=== PATIENT | female | born 1995 | race Caucasian/White ===

== ENCOUNTER 2018-03-03 21:33 | Emergency (ER) | payer OTHER ==
[2016-05-29 14:48] VITALS: BMI 23.3
--- NOTE | 2018-03-03 21:42 | OBHP ---
Datetime: 03/03/2018 21:38 IP Adm Impression: Term, intrauterine Admit Comment, IP Provider: @ 39+ wks c/o ctx pian since 7am, increasing intesntiy adn fruqe ncy since 8pm, every 5 min, 05/25, does not desire any pain meidcain. 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 PMH: Dneise PSH: Denes FHX: dnies SHX: negaive etoh/tobacc/drugs meds PNV A/P @ 39+ wks in erly labor -pt given optin of admission / pain emdciaon, vs ambuaitn -cont davion oadn efm Pelvic Type - PN: Adequate Extremities - PN: Normal Abdomen - PN: Normal Back - PN: Normal Breast - PN: Not Done Lungs - PN: Normal Heart - PN: Normal Thyroid - PN: Not Done Neurologic - PN: Normal HEENT - PN: Normal General - PN: Normal Presentation-Admit: Vertex FHR - Baseline A Provider: 145 Membranes, Provider: Intact Gestation - Est Wks by US: 39+ Vital Signs Provider: Reviewed IP Chief Complaint: Uterine contractions NICHD Variability Prov Fetus A: Moderate 6-25bpm FHR Category Provider Fetus A: Category I NICHD Decel Fetus A IP Provider: None Dilatation, Provider: 4 Effacement, Provider: 50 Station, Provider: -2 Genitourinary Exam: Normal DTRs - PN: Normal
[2018-03-04 03:03] VITALS: BP 107/63; PULSE 88; RESP 18; TEMP 98.8
== END 2018-03-03 22:30 | disposition home or self-care (01) ==
LOC: C.EROB 21:33
DX: O47.1 False labor at or after 37 completed weeks of gestation (principal); Z3A.39 39 weeks gestation of pregnancy

== ENCOUNTER 2018-03-04 03:07 | Inpatient (IN) | payer OTHER ==
[2018-03-04 03:54] VITALS: BMI 24.1
[2018-03-04] MEDS ORDERED: Penicillin G 5 Million Unit Vial IVPB ONE (03:54)
[2018-03-04] MEDS ORDERED: Lactated Ringer's 1,000 ML IV SCH (04:00)
[2018-03-04 04:27] LABS: BASO # 0.1 K/uL (0.0-0.2); BASO % 0.5 % (0.0-2.0); EOS % 0.2 % (0.0-4.0); HEMOGLOBIN 13.3 g/dL (11.0-16.0); LYMPH # 0.8 K/uL (1.0-4.3); LYMPH % 4.8 % (20.0-40.0); MEAN CELL VOLUME 91.5 fL (81.0-99.0); MEAN CORPUSCULAR HEMOGLOBIN 31.4 pg (27.0-31.0); MEAN CORPUSCULAR HGB CONC 34.3 g/dL (33.0-37.0); MEAN PLATELET VOLUME 8.4 fL (7.2-11.7); MONO # 0.6 K/uL (0.0-0.8); NEUT # 14.3 K/uL (1.8-7.0); NEUT % 90.5 % (50.0-75.0); NRBC % 0.1 % (0.0-2.0); PLATELET COUNT 205 K/uL (130-400); RBC 4.24 Mil/uL (3.80-5.20); RED CELL DISTRIBUTION WIDTH 13.5 % (11.5-14.5); WHITE BLOOD COUNT 15.8 K/uL (4.8-10.8)
[2018-03-04 04:34] LABS: ALB/GLOB RATIO 0.9 (1.0-2.1); ALBUMIN 3.6 g/dL (3.5-5.0); ALT/SGPT 13 U/L (9-52); AST/SGOT 25 U/L (14-36); BLOOD UREA NITROGEN 9 mg/dL (7-17); CALCIUM 8.9 mg/dl (8.6-10.4); GFR AFRICAN-AMERICAN > 60; GFR NON-AFRICAN AMERICAN > 60
[2018-03-04 04:49] LABS: LYMPHOCYTE 5 % (20-40); MONOCYTE 4 % (0-10); NEUTROPHIL 91 % (50-75); PLATELET ESTIMATE NORMAL (NORMAL); TOTAL CELLS COUNTED 100
[2018-03-04 05:05] LABS: HEPATITIS B SURFACE AG Negative (NEGATIVE)
--- NOTE | 2018-03-04 08:45 | OBHP ---
Datetime: 03/04/2018 08:30 IP Adm Impression: Term, intrauterine IP Admit Plan: Admit to unit Admit Comment, IP Provider: @ 39+ wks c/o ctx pian since 7am, increasing intesntiy adn fruqe ncy since 8pm, every 5 min, 05/25, does not desire any pain meidcain. 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
--- NOTE | 2018-03-04 08:46 | OBADHP ---
Datetime: 03/04/2018 08:30 Admit Comment, IP Provider: @ 39+ wks c/o ctx pian since 7am, increasing intesntiy adn fruqe ncy since 8pm, every 5 min, 05/25, does not desire any pain meidcain. pt preorts hse had some spotting earlier and unsure if leaking dnies any gross spill +FM Ante [facility] clinic with Dr Duckworth last appoitnemtn 2 weeks ago, did not feel comfortable going to [place] OB: x 1 FT 5lb 1 2unces uncompicaed 1.5 years ago VP CLINICAL: dneis PMH: Dneise PSH: Denes FHX: dnies SHX: negaive etoh/tobacc/drugs meds PNV A/P @ 39+ wks in elaboradmit, -admit -npo, ivf -pain managmnet prn -cont davion oadn efm Presentation-Admit: Vertex FHR - Baseline A Provider: 150 Amniotic Fluid Color, Provider: Clear Membranes, Provider: Ruptured Contraction Comments Provider: q 5m Gestation - Est Wks by US: 39.0 Vital Signs Provider: Reviewed; Within Normal Limits IP Chief Complaint: Uterine contractions NICHD Decel Fetus A IP Provider: None Dilatation, Provider: 8 Effacement, Provider: 90 Station, Provider: -1 EGA AdmitDate IP: 39.0 IP Adm Impression: Term, intrauterine IP Admit Plan: Admit to unit Datetime: 03/03/2018 21:38 Pelvic Type - PN: Adequate Extremities - PN: Normal Abdomen - PN: Normal Back - PN: Normal Breast - PN: Not Done Lungs - PN: Normal Heart - PN: Normal Thyroid - PN: Not Done Neurologic - PN: Normal HEENT - PN: Normal General - PN: Normal NICHD Variability Prov Fetus A: Moderate 6-25bpm FHR Category Provider Fetus A: Category I Genitourinary Exam: Normal DTRs - PN: Normal
--- NOTE | 2018-03-04 08:47 | OBPN ---
Datetime: 03/04/2018 08:30 IP Progress Impression: Normal progression of labor IP Procedures: Artificial ROM IP Progress Plan: Continue present management Membranes, Provider: Ruptured Amniotic Fluid Color, Provider: Clear Contraction Comments Provider: q 5m FHR - Baseline A Provider: 150 Gestation - Est Wks by US: 39.0 Presentation-Admit: Vertex IP Progress Note Comment: pt demar adn examiend c/o prssure vsss ve: 8cm/90/-1 AROM clear A/P @ 39 wk in active labor con tcurret magment Vital Signs Provider: Reviewed; Within Normal Limits Dilatation, Provider: 8 Effacement, Provider: 90 Station, Provider: -1 NICHD Decel Fetus A IP Provider: None Datetime: 03/03/2018 21:38 FHR Category Provider Fetus A: Category I NICHD Variability Prov Fetus A: Moderate 6-25bpm
--- NOTE | 2018-03-04 08:51 | OBDS ---
DELIVERY PERSONNEL Delivery Doctor: Fabiola Sapp MD MATERNAL INFORMATION Delivery Anesthesia: None Medications in Delivery: methergine 0.2 mg.ml Estimated Blood Loss (ml): 200 Placenta Cultured: No Maternal Complications: None RN Comments: liveborn baby boy 9/9 Provider Comments: pt was fully dilated and pushing. Atruamtic, spontaneous deliveyr of head, no nuc elizabeth cord noted. atrumatic, spontaneous delivery of anterior followed b posterior soulder followed by delivery of eloy body. Both oral and nasal passages of eloy baby were bulb suctioned. umbilical cord cl amped and cut. Funud firm. intac tperineum, no laceration. loewr uterine segment boggy, bimanual mass age, IM methergine x 1 given. good hemostais,s no complicatins. Nena emale infnat agars 9,9 ebls 200 ml LABOR SUMMARY EDC: 03/11/2018 00:00 No. Babies in Womb: 1 Attempted: No Labor Anesthesia: None LABOR INFORMATION Reason for Induction: Not Applicable Onset of Labor: 03/03/2018 19:00 Oxytocin: N/A Group B Beta Strep: Done, Result Unknown Antibiotics # of Doses: 1 Antibiotics Time of Last Dose: 0405 Steroids Given: None Reason Steroids Not Administered: Not Applicable MEMBRANES Membranes Rupture Method: Artificial Rupture of Membranes: 03/04/2018 08:12 Length of Rupture (hrs): 0.35 Amniotic Fluid Color: Clear Amniotic Fluid Amount: Moderate Amniotic Fluid Odor: None VAGINAL DELIVERY Episiotomy: None Laceration Extension: N/A Laceration Type: None Laceration Repair: No Initial Vag Sponge Count: 10 Final Vag Sponge Count: 10 Initial Vag Sharps Count: 10 Final Vag Sharps Count: 10 Sponge Count Correct: N/A Sharps Count Correct: N/A Count Comment: all sponge counts done with dr sapp,all counts correct BABY A INFORMATION Delivery Date/Time: 03/04/2018 08:33 Method of Delivery: Vaginal Born in Route : No : N/A Vacuum Extraction: N/A Shoulder Dystocia : No SHOULDER DYSTOCIA BABY A Infant Delivery Date/Time: 03/04/2018 08:33 IDENTIFICATION/MEDS BABY A ID Band Number: [id number] Sensor Number: [id number]
[2018-03-04] MEDS ORDERED: Oxycodone/Acetaminophen 5/325 mg Tab PO PRN ×2 (09:00)
[2018-03-04 11:00] VITALS: RESP 18
[2018-03-04 12:06] LABS: SQUAMOUS EPITHIAL < 1 /hpf (0-5); URINE BILIRUBIN NEGATIVE (NEGATIVE); URINE BLOOD 3+ (NEGATIVE); URINE COLOR Yellow (YELLOW); URINE GLUCOSE (UA) NORMAL (Normal); URINE LEUKOCYTE ESTERASE NEG Leu/uL (Negative); URINE PROTEIN NEGATIVE (NEGATIVE); URINE UROBILINOGEN NORMAL mg/dL (0.2-1.0)
[2018-03-04 12:07] LABS: URINE CLARITY SLHAZY (Clear)
[2018-03-04 19:35] LABS: RAPID PLASMA REAGIN NONREACTIVE (NONREACTIVE)
[2018-03-05 07:43] LABS: BASO % 0.3 % (0.0-2.0); EOS # 0.1 K/uL (0.0-0.7); EOS % 0.6 % (0.0-4.0); HEMOGLOBIN 12.3 g/dL (11.0-16.0); LYMPH # 1.7 K/uL (1.0-4.3); LYMPH % 15.1 % (20.0-40.0); MEAN CELL VOLUME 92.4 fL (81.0-99.0); MEAN CORPUSCULAR HEMOGLOBIN 31.7 pg (27.0-31.0); MEAN CORPUSCULAR HGB CONC 34.4 g/dL (33.0-37.0); MEAN PLATELET VOLUME 8.4 fL (7.2-11.7); MONO # 0.9 K/uL (0.0-0.8); MONO % 7.9 % (0.0-10.0); NEUT # 8.7 K/uL (1.8-7.0); NEUT % 76.1 % (50.0-75.0); RBC 3.87 Mil/uL (3.80-5.20); RED CELL DISTRIBUTION WIDTH 13.2 % (11.5-14.5); WHITE BLOOD COUNT 11.4 K/uL (4.8-10.8)
[2018-03-05 16:29] VITALS: PULSE 72
[2018-03-06 18:25] VITALS: BP 96/64; TEMP 97.7; O2SAT 100
== END 2018-03-06 13:50 | disposition home or self-care (01) | DRG 373 ==
LOC: C.EROB 03:07 → C.4D 03:47 → C.4M 10:23
PROVIDERS: ADMIT Obstetrics & Gynecology; ATTEND Obstetrics & Gynecology
PROC: 10E0XZZ Delivery of Products of Conception, External Approach (ICD-10-PCS; principal; 2018-03-04)
PROC: 10907ZC Drainage of Amniotic Fluid, Therapeutic from Products of Conception, Via Natural or Artificial Opening (ICD-10-PCS; 2018-03-04)
DX: O80 Encounter for full-term uncomplicated delivery (principal); Z3A.39 39 weeks gestation of pregnancy; Z37.0 Single live birth